=== PATIENT | female | born 1980 | race Native Hawaiian/Other Pacific Islander ===

== ENCOUNTER 2023-07-03 08:34 | Outpatient (CLI) | payer OTHER, SELFPAY ==
--- NOTE | 2023-07-03 08:47 | USCV_ITS ---
Erendira Edge Age: 42 Gender: F : 1980 Exam Date: 07/03/2023 09:15 Ordering Phys: Heaven Rodriguez Technologist: Exam Location: [facility] – [place] Indication: HISTORY: PROCEDURES: Serial compression, augmentation maneuvers, and spectral Doppler flow evaluation were performed. FINDINGS: All deep veins demonstrated compressibility without evidence of intraluminal thrombus or increased echogenicity. Reflux determinations were made with the patient in the dependent position, the weight being on the contralateral leg. Significant venous reflux were noted at the saphenofemoral junction and throughout the greater saphenous vein segments on the right side up to the distal greater saphenous vein segment. The reflux times at distal to the radius saphenofemoral junction, proximal, mid and distal greater saphenous vein segments where 2.66, 1.65, 1.64 and 2.17 seconds respectively. These venous segments were measuring 1.01, 1.08, 1.657.76 and 0.71 cm respectively in diameter. Just distal to the saphenofemoral junction, the venous segment was superficial-0.83 cm deep from the surface. The proximal, mid and distal cervical segments where at 1.77, 2.53 and 1.42 cm deep from the surface. No significant venous reflux were noted in the below-knee segment level neither in the saphenous vein or at this great saphenous node in the small saphenous venous segments veins. On the left side, no significant venous reflux were noted. No significant venous reflux were seen in the deep veins on either side. CONCLUSIONS 1. No evidence of deep vein thrombosis in the above-mentioned identifiable veins. 2. On the right side, significant venous reflux of greater than 500 ms were noted at all the greater saphenous vein segments in the above-knee level. No significant venous reflux were noted at the below-knee level. The venous diameter, reflux time and depth from the surface are as mentioned above. 3. No significant venous reflux were noted on the left side. No similar previous studies are available for comparison Dr Robert Alves MD [facility] (Electronically Signed) Final Date: 03 July 2023 18:28 S
== END 2023-07-03 08:35 | disposition home or self-care (01) ==
PROVIDERS: PCP Nurse Practitioner Family; Visit Provider Nurse Practitioner Family
DX: I83.813 Varicose veins of bilateral lower extremities with pain (principal)
CPT/HCPCS: 93970